=== PATIENT | female | born 1980 | race Caucasian/White ===

== ENCOUNTER 2017-12-30 08:15 | Emergency (ER) | payer BC ==
[2017-12-30 08:43] VITALS: BP 142/97
--- NOTE | 2017-12-30 09:54 | UC ---
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, step daughter has influenza---recent symptoms of cough with nausea and diarrhea - History of Current Complaint Hx Obtained From: Patient Hx Last Menstrual Period: now ?: No Onset/Duration: Gradual Onset, Lasting Weeks - 4, Still Present Timing: Constant Severity Initially: Moderate Severity Currently: Moderate Pain Intensity: 0 Pain Scale Used: 0-10 Numeric Character: Cough: Nonproductive Aggravating Factors: Nothing Alleviating Factors: Nothing Associated Signs And Symptoms: Positive: Fever, Nasal Congestion <Aletha Godinez - Last Filed: 12/30/17 10:26> <Asuncion Goodwin - Last Filed: 12/30/17 14:21> - History of Current Complaint Chief Complaint: UCRespiratory Stated Complaint: CONGESTED,VOMITING,COUGH Time Seen by Provider: 12/30/17 09:46 - Allergies/Home Medications Allergies/Adverse Reactions: Allergies Allergy/AdvReac Type Severity Reaction Status Date / Time No Known Allergies Allergy Verified 12/30/17 08:37 PMH/Surg Hx/FS Hx/Imm Hx Previously Healthy: Yes - Surgical History Surgical History: None - Family History Known Family History: Positive: None - Social History Occupation: Employed Full-time - day care Lives: With Family Alcohol Use: Daily - 4-5 glasses of wine daily Substance Use Type: None Smoking Status (MU): Never Smoked Tobacco <Aletha Godinez - Last Filed: 12/30/17 10:26> Review of Systems Constitutional: Fever, Chills, Fatigue Skin: Negative Eyes: Negative ENT: Nasal Discharge, Sinus Congestion Respiratory: Cough Cardiovascular: Negative Gastrointestinal: Vomiting, Diarrhea Genitourinary: Negative Motor: Negative Neurovascular: Negative Musculoskeletal: Negative Neurological: Headache Psychological: Negative Is Patient Immunocompromised?: No All Other Systems Reviewed And Are Negative: Yes <Aletha Godinez - Last Filed: 12/30/17 10:26> Physical Exam Triage Information Reviewed: Yes Appearance: No Pain Distress, Well-Nourished, Ill-Appearing - mild Vital Signs: Initial Vital Signs Temp 99.5 F 12/30/17 08:37 Pulse 114 12/30/17 08:37 Resp 18 12/30/17 08:37 BP 142/97 12/30/17 08:37 Pulse Ox 97 12/30/17 08:37 Vital Signs Reviewed: Yes Eye Exam: Normal Eyes: Positive: Conjunctiva Clear ENT Exam: Normal ENT: Positive: Normal ENT inspection, Hearing grossly normal, Pharynx normal, TMs normal, Uvula midline. Negative: Nasal congestion, Nasal drainage, Tonsillar swelling, Tonsillar exudate, Trismus, Muffled voice, Hoarse voice, Dental tenderness, Sinus tenderness Dental Exam: Normal Neck exam: Normal Neck: Positive: Supple, Nontender, No Lymphadenopathy Respiratory Exam: Normal Respiratory: Positive: Chest non-tender, Lungs clear, Normal breath sounds, No respiratory distress, No accessory muscle use Cardiovascular Exam: Normal Cardiovascular: Positive: No Murmur, Pulses Normal, Brisk Capillary Refill, Tachycardia Abdominal Exam: Normal Abdomen Description: Positive: Nontender, No Organomegaly, Soft. Negative: CVA Tenderness (R), CVA Tenderness (L) Bowel Sounds: Positive: Present Musculoskeletal Exam: Normal Musculoskeletal: Positive: Strength Intact, ROM Intact, No Edema Neurological Exam: Normal Neurological: Positive: Alert, Muscle Tone Normal Psychological Exam: Normal Psychological: Positive: Normal Response To Family, Age Appropriate Behavior Skin Exam: Normal Skin: Positive: Other - flushed <Aletha Godinez - Last Filed: 12/30/17 10:26> Vital Signs: Initial Vital Signs Temp 99.5 F 12/30/17 08:37 Pulse 114 12/30/17 08:37 Resp 18 12/30/17 08:37 BP 142/97 12/30/17 08:37 Pulse Ox 97 12/30/17 08:37 <Asuncion Goodwin - Last Filed: 12/30/17 14:21> Diagnostic Evaluation - Laboratory O2 Sat by Pulse Oximetry: 97 Diagnostic Studies Comment: Influenza B (+) <Aletha Godinez - Last Filed: 12/30/17 10:26> Respiratory Course/Dx - Course Course Of Treatment: tessalon, tamiflu, increase fluids, follow bp at [facility] drinking information - Differential Dx/Diagnosis Provider Diagnoses: Influenza B, Elevated blood pressure without dx of hypertension, at [facility] alcohol use <Aletha Godinez - Last Filed: 12/30/17 10:26> Discharge <Aletha Godinez - Last Filed: 12/30/17 10:26> <Asuncion Goodwin - Last Filed: 12/30/17 14:21> - Discharge Plan Condition: Stable Disposition: HOME Prescriptions: Benzonatate CAP* [Tessalon 100 MG CAP*] 100 - 200 mg PO TID PRN #40 cap PRN Reason: Cough Oseltamivir CAP* [Tamiflu CAP*] 75 mg PO BID #10 cap Patient Education Materials: Influenza (ED), At-Risk Alcohol Use (ED), Hypertension (ED) Forms: *Work Release Referrals: [facility] [Provider Group] Attestation Statement User Type: Provider - I was available for consult. This patient was seen by the [facility]. The patient was not presented to, seen by, or examined by me. Ljj <Asuncion Goodwin - Last Filed: 12/30/17 14:21>
== END 2017-12-30 10:32 | disposition home or self-care (01) ==
LOC: UCEAST 08:15
DX: J10.1 Influenza due to other identified influenza virus with other respiratory manifestations (principal); R03.0 Elevated blood-pressure reading, without diagnosis of hypertension; F10.99 Alcohol use, unspecified with unspecified alcohol-induced disorder
CPT/HCPCS: 87502; 99202; G0463

== ENCOUNTER 2018-04-27 17:08 | Emergency (ER) | payer BC ==
--- NOTE | 2018-04-27 17:14 | UC ---
Skin Complaint HPI - HPI Summary HPI Summary: 37 yo female presents with bug bite to left ribs sustained about 3-4 days ago. Area is getting increasingly red and itching. Denies fever, chills, drainage, or bleeding from the site. - History of Current Complaint Time Seen by Provider: 04/27/18 17:14 Stated Complaint: INSECT BITE Hx Obtained From: Patient Hx Last Menstrual Period: now Onset/Duration: Gradual Onset Current Severity: Mild Pain Intensity: 2 Pain Scale Used: 0-10 Numeric - Allergy/Home Medications Allergies/Adverse Reactions: Allergies Allergy/AdvReac Type Severity Reaction Status Date / Time No Known Allergies Allergy Verified 04/27/18 17:19 Review of Systems Constitutional: Negative Skin: Other - Redness left ribs Respiratory: Negative Cardiovascular: Negative Neurovascular: Negative Neurological: Negative Psychological: Negative All Other Systems Reviewed And Are Negative: Yes PMH/Surg Hx/FS Hx/Imm Hx - Additional Past Medical History Additional PMH: None Previously Healthy: Yes - Surgical History Surgical History: None - Family History Known Family History: Positive: None - Social History Occupation: Employed Full-time Lives: With Family Alcohol Use: Daily - 4-5 glasses of wine daily Substance Use Type: None Smoking Status (MU): Never Smoked Tobacco Physical Exam - Summary Physical Exam Summary: GENERAL: NAD. WDWN. No pain distress. SKIN: Left ribs: 5.0cm diameter of erythema and mild edema. Mild warmth. No streaking, bleeding, or drainage. NECK: Supple. Nontender. No lymphadenopathy. CHEST: No accessory muscle use. Breathing comfortably and in no distress. CV: RRR. Without m/r/g. NEURO: Alert. CN II-XII grossly intact. PSYCH: Age appropriate behavior. Triage Information Reviewed: Yes Vital Signs: Vital Signs: Temp Pulse Resp BP Pulse Ox 99.5 F 101 16 135/91 97 04/27/18 17:14 04/27/18 17:14 04/27/18 17:14 04/27/18 17:14 04/27/18 17:14 Course/Dx - Course Course Of Treatment: Cellulitis due to insect bite. - Diagnoses Provider Diagnoses: Cellulitis due to insect bite Discharge - Sign-Out/Discharge Documenting (check all that apply): Discharge/Admit/Transfer - Discharge Plan Condition: Stable Disposition: HOME Prescriptions: Cephalexin CAP* [Keflex CAP*] 500 mg PO BID #14 cap Patient Education Materials: Insect Bite or Sting (ED) Referrals: No Primary Care Phys,NOPCP [Primary Care Provider] - Additional Instructions: If you develop a fever, shortness of breath, chest pain, new or worsening symptoms - please call your PCP or go to the ED. Your blood pressure was high at todays visit. Please see your primary provider within 4 weeks for recheck and re-evaluation. - Billing Disposition and Condition Condition: STABLE Disposition: Home
[2018-04-27 17:19] VITALS: BP 135/91
== END 2018-04-27 17:30 | disposition home or self-care (01) ==
LOC: UCEAST 17:08
DX: S20.96XA Insect bite (nonvenomous) of unspecified parts of thorax, initial encounter (principal); L03.319 Cellulitis of trunk, unspecified; W57.XXXA Bitten or stung by nonvenomous insect and other nonvenomous arthropods, initial encounter; Y93.9 Activity, unspecified; Y92.9 Unspecified place or not applicable
CPT/HCPCS: 99212; G0463

== ENCOUNTER 2018-05-05 16:58 | Emergency (ER) | payer BC ==
[2018-05-05 17:17] VITALS: BP 126/88
--- NOTE | 2018-05-05 17:36 | UC ---
Skin Complaint HPI - HPI Summary HPI Summary: 37 yo female about 10 days s/p the development of a left lateral chest rash. When she first noticed the rash it was about the size of a silver dollar. It has expanded daily and has a bulls eye appearance. She photographed her rash with her phone and showed me a series of photos as it progressed. She denies any fever or chills/ headaches /joint pains. She was seen at the [facility] about a week ago and started on Keflex. States the Keflex is given her diarrhea and the rash has expanded despite her taking the medicine as directed. She denies any tick bite. - History of Current Complaint Chief Complaint: UCSkin Stated Complaint: POSS INSECT BITE Hx Obtained From: Patient Hx Last Menstrual Period: 04/28/18 Onset/Duration: Gradual Onset, Lasting Days Onset Severity: Mild Current Severity: Mild Pain Intensity: 2 Pain Scale Used: 0-10 Numeric Location: Other Character: Redness, Raised, Painful - sl Aggravating Factor(s): Nothing Alleviating Factor(s): Nothing Associated Signs & Symptoms: Positive: Rash - Allergy/Home Medications Allergies/Adverse Reactions: Allergies Allergy/AdvReac Type Severity Reaction Status Date / Time No Known Allergies Allergy Verified 05/05/18 17:08 Review of Systems Constitutional: Negative Skin: Rash Eyes: Negative ENT: Negative Respiratory: Negative Cardiovascular: Negative Gastrointestinal: Negative Genitourinary: Negative Motor: Negative Neurovascular: Negative Musculoskeletal: Negative Neurological: Negative Psychological: Negative Is Patient Immunocompromised?: No All Other Systems Reviewed And Are Negative: Yes PMH/Surg Hx/FS Hx/Imm Hx Previously Healthy: Yes - Surgical History Surgical History: Yes Surgery Procedure, Year, and Place: LEFT KNEE - Family History Known Family History: Positive: Hypertension - Social History Alcohol Use: Daily Alcohol Amount: few glasses of wine Substance Use Type: None Smoking Status (MU): Never Smoked Tobacco Physical Exam Triage Information Reviewed: Yes Appearance: Well-Appearing, No Pain Distress, Well-Nourished Vital Signs: Initial Vital Signs Temp 98.4 F 05/05/18 17:13 Pulse 101 05/05/18 17:13 Resp 16 05/05/18 17:13 BP 126/88 05/05/18 17:13 Pulse Ox 97 05/05/18 17:13 Vital Signs Reviewed: Yes Eyes: Positive: Conjunctiva Clear ENT: Negative: Nasal congestion, Nasal drainage, Muffled voice, Hoarse voice Neck: Positive: Supple, Nontender Respiratory: Positive: Lungs clear, Normal breath sounds, No respiratory distress, No accessory muscle use Cardiovascular: Positive: RRR, No Murmur Musculoskeletal: Positive: ROM Intact, No Edema Neurological: Positive: Alert Psychological Exam: Normal Skin Exam: Other - 10 x 20cm rash c/w erthyema migrans Course/Dx - Diagnoses Provider Diagnoses: LYME DISEASE. Erythema Migrans Discharge - Sign-Out/Discharge Documenting (check all that apply): Discharge/Admit/Transfer - Discharge Plan Condition: Stable Disposition: HOME Prescriptions: DOXYcycline CAP(*) [DOXYcycline 100MG CAP(*)] 100 mg PO BID #24 cap Patient Education Materials: Lyme Disease (ED) Referrals: Maite Mckoy MD [Primary Care Provider] - 2 Weeks Additional Instructions: recheck for new or worsening symptoms - Billing Disposition and Condition Condition: STABLE Disposition: Home
== END 2018-05-05 17:33 | disposition home or self-care (01) ==
LOC: UCCORT 16:58
DX: A69.20 Lyme disease, unspecified (principal); A26.0 Cutaneous erysipeloid
CPT/HCPCS: 99212; G0463

== ENCOUNTER 2021-05-10 19:49 | Inpatient (IN) ==
[2021-05-11] MEDS ORDERED: NS 0.9% 1000 ml BAG 1,000 ML IV ONE (01:20)
[2021-05-11] MEDS ORDERED: NS 0.9% 1000 ml BAG 2,000 ML IV ONE (01:25)
[2021-05-11] MEDS ORDERED: Ondansetron 4 mg VIAL 2 MG/ML 2 ml VIAL IV ONE (01:25)
[2021-05-11] MEDS ORDERED: Pantoprazole VIAL 40 MG VIAL IV ONE (01:29)
[2021-05-11 02:09] LABS: ALT 42 U/L (7-52); Albumin 3.1 g/dL (3.2-5.2); Albumin/Globulin Ratio 0.7 (1-3); Alkaline Phosphatase 173 U/L (35-149); Blood Urea Nitrogen 14 mg/dL (6-24); C Reactive Protein 96.51 mg/L (<8.01); CO2 Carbon Dioxide 30 mmol/L (22-32); Calcium 8.2 mg/dL (8.6-10.3); Chloride 97 mmol/L (101-111); EGFR African American 70.3 (>60); EGFR Non-African American 58.1 (>60); Globulin 4.4 g/dL (2-4); Glucose 121 mg/dL (70-100); Lipase 60 U/L (11.0-82.0); Sodium 134 mmol/L (135-145); Total Protein 7.5 g/dL (6.4-8.9)
[2021-05-11 02:16] LABS: ABS Lymphocytes 0.7 10^3/ul (1.0-4.8); ABS Neutrophils 8.7 10^3/ul (1.5-7.7); HCG Pregnancy 0.72 mIU/mL; Hematocrit 33 % (35-47); Hemoglobin 11.5 g/dL (12.0-16.0); Lymphocyte % 6.7 %; Mean Corpuscular HGB Conc 34 g/dL (31-36); Mean Corpuscular Hemoglobin 34 pg (27-31); Mean Corpuscular Volume 99 fL (80-97); Nucleated Red Blood Cells % 0.1; Red Blood Count 3.37 10^6 /uL (3.70-4.87); Red Cell Distribution Width 20 % (10-15); White Blood Count 10.5 10^3/uL (3.5-10.8)
[2021-05-11 02:40] LABS: Platelet Count 20 10^3/uL (150-450)
[2021-05-11 02:45] LABS: Alcohol, S < 10 mg/dL (<10)
[2021-05-11 02:51] LABS: Magnesium 1.4 mg/dL (1.9-2.7)
[2021-05-11 02:52] LABS: Anion Gap 7 mmol/L (2-11); Potassium 3.3 mmol/L (3.5-5.0)
[2021-05-11] MEDS ORDERED: Magnesium Sulfate 2 gm BAG 2 GM/50 ML BAG IVPB ONE (02:53)
[2021-05-11 02:54] LABS: AST 137 U/L (13-39)
[2021-05-11] MEDS ORDERED: Lorazepam PYXIS KEY PRN (03:01)
[2021-05-11] MEDS ORDERED: LORazepam 2 mg VIAL 1 ml IV PUSH ONE (03:01)
[2021-05-11 03:39] LABS: INR 2.68 (0.86-1.15)
[2021-05-11] MEDS ORDERED: Ondansetron 4 mg VIAL 2 MG/ML 2 ml VIAL IV PRN (04:22)
[2021-05-11] MEDS ORDERED: NS 0.9% 1000 ml BAG 1,000 ML IV SCH (04:30)
[2021-05-11] MEDS ORDERED: Thiamine 100 MG/ML 2 ml VIAL (200 mg) IM ONE (04:46)
[2021-05-11] MEDS ORDERED: LORazepam 2 mg VIAL 1 ml IV PUSH SCH (05:00)
[2021-05-11] MEDS ORDERED: Potassium Chlor 20 meq TAB.ER PO ONE (05:21)
[2021-05-11 05:35] LABS: Hepatitis B Surface Antigen Nonreactive (Nonreactive)
[2021-05-11 05:40] LABS: Hepatitis A Ab IgM Negative (Negative)
[2021-05-11 05:41] LABS: Hepatitis B Core IgM Nonreactive (Nonreactive)
[2021-05-11 05:53] LABS: Hepatitis C Antibody Negative (Negative)
[2021-05-11 09:00] LABS: Total Bilirubin 12.6 mg/dL (0.2-1.0)
[2021-05-11] MEDS ORDERED: PrednisoLONE 3 MG/ML ORAL.SOLU 15 MG/5 ML ORAL.SOLN PO SCH (09:00)
[2021-05-11] MEDS ORDERED: Multivitamins/Minerals TAB PO SCH (09:00)
[2021-05-12 06:10] VITALS: BP 146/80
[2021-05-12 06:22] LABS: INR 2.66 (0.86-1.15)
[2021-05-12 06:37] LABS: Hematocrit 28 % (35-47); Hemoglobin 9.6 g/dL (12.0-16.0); Mean Corpuscular HGB Conc 35 g/dL (31-36); Mean Corpuscular Hemoglobin 35 pg (27-31); Mean Corpuscular Volume 101 fL (80-97); Mean Platelet Volume 8.1 fL (7.4-10.4); Platelet Count 18 10^3/uL (150-450); Red Blood Count 2.73 10^6 /uL (3.70-4.87); Red Cell Distribution Width 19 % (10-15)
[2021-05-12 06:40] LABS: Albumin 2.7 g/dL (3.2-5.2); Albumin/Globulin Ratio 0.7 (1-3); C Reactive Protein 74.89 mg/L (<8.01); Calcium 7.9 mg/dL (8.6-10.3); Direct Bilirubin 5.2 mg/dL (0.03-0.18); EGFR Non-African American 65.3 (>60); Globulin 3.7 g/dL (2-4); Indirect Bilirubin 5.6 mg/dL (0.3-1.0); Magnesium 1.7 mg/dL (1.9-2.7); Potassium 3.3 mmol/L (3.5-5.0); Total Bilirubin 10.8 mg/dL (0.2-1.0); Total Protein 6.4 g/dL (6.4-8.9)
[2021-05-12 07:10] LABS: ABS Eosinophils 0.1 10^3/ul (0-0.6); ABS Lymphocytes 1.2 10^3/ul (1.0-4.8); ABS Monocytes 1.1 10^3/ul (0-0.8); ABS Neutrophils 7.6 10^3/ul (1.5-7.7); Lymphocyte % 11.9 %
[2021-05-12 07:11] LABS: Eosinophil % 0.7 %
[2021-05-12] MEDS ORDERED: Potassium Chlor 20 meq TAB.ER PO ONE (07:27)
[2021-05-12] MEDS ORDERED: Magnesium Sulfate IV 1GM/100ML 1 GM/100 ML BAG IV ONE (07:57)
== END 2021-05-12 08:25 | disposition left against medical advice (07) | DRG 279 ==
LOC: ED 19:49 → MEDTELE 05-11 04:18
PROVIDERS: ADMIT Hospitalist; ATTEND Student in an Organized Health Care Education/Training Program

== ENCOUNTER 2021-09-25 15:09 | Inpatient (IN) ==
[2021-09-25] MEDS ORDERED: Lactated Ringers 1000 ml BAG 1,000 ML IV ONE (15:37)
[2021-09-25] MEDS ORDERED: Ondansetron 4 mg VIAL 2 MG/ML 2 ml VIAL IV ONE (15:37)
[2021-09-25] MEDS ORDERED: Pantoprazole VIAL 40 MG VIAL IV ONE (15:39)
[2021-09-25 16:38] LABS: Activated Partial Thrombo Time 40.7 seconds (26.0-38.0)
[2021-09-25 16:39] LABS: INR 3.87 (0.86-1.15)
[2021-09-25 16:42] LABS: Albumin/Globulin Ratio 0.6 (1-3); C Reactive Protein 14.51 mg/L (<8.01); Globulin 3.4 g/dL (2-4); Potassium 4.3 mmol/L (3.5-5.0); Total Protein 5.4 g/dL (6.4-8.9)
[2021-09-25 17:01] LABS: Total Bilirubin 12.7 mg/dL (0.2-1.0)
[2021-09-25 17:19] LABS: ABS Lymphocytes 0.7 10^3/ul (1.0-4.8); ABS Monocytes 0.9 10^3/ul (0-0.8); ABS Neutrophils 5.5 10^3/ul (1.5-7.7); Hematocrit 26 % (35-47); Hemoglobin 9.1 g/dL (12.0-16.0); Hypochromasia 1+; Lymphocyte % 9.6 %; Macrocytosis 1+; Mean Corpuscular HGB Conc 35 g/dL (31-36); Mean Corpuscular Hemoglobin 38 pg (27-31); Mean Corpuscular Volume 109 fL (80-97); Mean Platelet Volume 8.8 fL (7.4-10.4); Microcytosis 1+; Platelet Count 52 10^3/uL (150-450); Red Blood Count 2.38 10^6 /uL (3.70-4.87); Red Cell Distribution Width 16 % (10-15); White Blood Count 7.1 10^3/uL (3.5-10.8)
[2021-09-25 17:43] LABS: Direct Bilirubin 5.7 mg/dL (0.03-0.18)
[2021-09-25] MEDS ORDERED: NS 0.9% 1000 ml BAG 1,000 ML IV ONE ×2 (18:42→20:38)
[2021-09-26] MEDS ORDERED: Phytonadione Oral Solution 5 MG/25 ML UDC PO ONE ×2 (00:13→16:37)
[2021-09-26] MEDS ORDERED: Octreotide Acetate 50 MCG/ML ML IV SLOW PU ONE (00:13)
[2021-09-26] MEDS ORDERED: Ondansetron 4 mg VIAL 2 MG/ML 2 ml VIAL IV PRN (00:25)
[2021-09-26] MEDS ORDERED: Al Hydrox/Mg Hydrox/Simet LIQ 30 ML UDC PO PRN (00:25)
[2021-09-26] MEDS ORDERED: Octreotide Acetate 50 MCG in NS 0.9% IV ONE (00:30)
[2021-09-26] MEDS ORDERED: NS 0.9% 50 ML 50 ML ONE (00:33)
[2021-09-26] MEDS ORDERED: NS 0.9% 1000 ml BAG 1,000 ML IV SCH (00:45)
[2021-09-26] MEDS: Pantoprazole 80 mg in NS BAG 80 MG/250 ML BAG IV SCH ×3 (01:27→18:13)
[2021-09-26] MEDS ORDERED: Octreotide Acetate 500 MCG in NS 0.9% 100 ml BAG 100 ML IV SCH (02:30)
[2021-09-26 03:31] LABS: Urine Appearance Cloudy; Urine Bacteria 1+ (Absent); Urine Bilirubin 2+ (Negative); Urine Blood 1+ (Negative); Urine Color Amber; Urine Glucose 1+(50 mg/dL) (Negative); Urine Granular Casts Present (Absent); Urine Ketones Trace (Negative); Urine Nitrite Negative (Negative); Urine Protein 1+(30 mg/dL) (Negative); Urine Red Blood Cell Trace(0-2/hpf) (Absent); Urine Specific Gravity 1.023 (1.002-1.030); Urine Squamous Epithelial Cell Present (Absent); Urine Urobilinogen Positive (Negative); Urine White Blood Cell 2+(11-20/hpf) (Absent)
[2021-09-26 03:46] LABS: Hematocrit 21 % (35-47); Mean Corpuscular HGB Conc 33 g/dL (31-36); Mean Corpuscular Hemoglobin 37 pg (27-31); Mean Corpuscular Volume 112 fL (80-97); Red Blood Count 1.89 10^6 /uL (3.70-4.87); Red Cell Distribution Width 17 % (10-15); White Blood Count 5.1 10^3/uL (3.5-10.8)
[2021-09-26 03:51] LABS: Rapid COVID-19 Molecular Undetected (Undetected)
[2021-09-26 03:53] LABS: ALT 23 U/L (7-52); Albumin 1.7 g/dL (3.2-5.2); Albumin/Globulin Ratio 0.6 (1-3); Alkaline Phosphatase 101 U/L (35-149); Blood Urea Nitrogen 19 mg/dL (6-24); CO2 Carbon Dioxide 25 mmol/L (22-32); Calcium 7.4 mg/dL (8.6-10.3); Chloride 105 mmol/L (101-111); Globulin 2.9 g/dL (2-4); Glucose 151 mg/dL (70-100); Sodium 137 mmol/L (135-145); Total Protein 4.6 g/dL (6.4-8.9)
[2021-09-26 03:55] LABS: INR 4.06 (0.86-1.15)
[2021-09-26 03:57] LABS: Anion Gap 7 mmol/L (2-11)
[2021-09-26] MEDS ORDERED: cefTRIAXone 1 gm/50 mL NS BAG 1 GM/50 ML BAG IVPB SCH (04:00)
[2021-09-26 04:53] LABS: Potassium Redraw 4.5 mmol/L (3.5-5.0)
[2021-09-26 07:14] LABS: ABS Lymphocytes 0.7 10^3/ul (1.0-4.8); ABS Monocytes 0.5 10^3/ul (0-0.8); Lymphocyte % 12.9 %; Mean Platelet Volume 10.9 fL (7.4-10.4); Nucleated Red Blood Cells % 0.1; Platelet Count 56 10^3/uL (150-450)
[2021-09-26 09:16] LABS: Phosphorus 3.9 mg/dL (2.5-5.0)
[2021-09-26 09:17] LABS: Magnesium 1.2 mg/dL (1.9-2.7)
[2021-09-26] MEDS ORDERED: Magnesium Sulf 4 GM/100 ML IV 4,000 MG/100 ML BAG IVPB ONE (10:30)
[2021-09-26] MEDS ORDERED: Pantoprazole VIAL 40 MG VIAL IV ONE (10:48)
[2021-09-26] MEDS: Octreotide Acetate 500 MCG in NS 0.9% 100 ml BAG 100 ML IV SCH ×3 (11:50→21:41)
[2021-09-26] MEDS ORDERED: Naloxone 0.4 mg VIAL 0.4 mg/ml 1 ml VIAL IV PRN (15:18)
[2021-09-26] MEDS ORDERED: Prochlorperazine 5 mg/ml 2 ml VIAL (10 mg) IV PRN (15:18)
[2021-09-26] MEDS ORDERED: Midazolam 2 mg/2 ml VIAL 1 mg/ml 2 ml VIAL (2 mg) ONE (15:24)
[2021-09-26] MEDS ORDERED: Propofol 10 MG/ML 20 ML BTL ONE (15:24)
[2021-09-26] MEDS ORDERED: fentaNYL 100 mcg/2 ml 50 MCG/ML VIAL ONE (15:24)
[2021-09-26] MEDS ORDERED: Phenylephrine 40 mcg/mL 10mL (400mcg) SYRINGE ONE (15:24)
[2021-09-26] MEDS ORDERED: Succinylcholine 200 mg VIAL 20 mg/ml 10 ml VIAL (200 mg) ONE (15:27)
[2021-09-26 15:29] LABS: Hematocrit 26 % (35-47); Hemoglobin 8.8 g/dL (12.0-16.0); Mean Corpuscular HGB Conc 34 g/dL (31-36); Mean Corpuscular Hemoglobin 37 pg (27-31); Mean Corpuscular Volume 107 fL (80-97); Red Cell Distribution Width 19 % (10-15)
[2021-09-26 15:46] LABS: Activated Partial Thrombo Time 43.3 seconds (26.0-38.0); INR 2.81 (0.86-1.15)
[2021-09-26 15:52] LABS: Mean Platelet Volume 8.8 fL (7.4-10.4); Platelet Count 39 10^3/uL (150-450)
[2021-09-26] MEDS ORDERED: EPHEDrine (Pressors) 50 MG/ML VIAL ONE (15:55)
[2021-09-26] MEDS ORDERED: Ondansetron 4 mg VIAL 2 MG/ML 2 ml VIAL ONE (16:09)
[2021-09-26 16:12] LABS: Albumin 1.9 g/dL (3.2-5.2); Albumin/Globulin Ratio 0.6 (1-3); Calcium 7.5 mg/dL (8.6-10.3); Globulin 3.1 g/dL (2-4); Phosphorus 3.6 mg/dL (2.5-5.0); Potassium 4.2 mmol/L (3.5-5.0)
[2021-09-26 16:13] LABS: Magnesium 2.4 mg/dL (1.9-2.7)
[2021-09-26 16:19] LABS: Total Bilirubin 12.6 mg/dL (0.2-1.0)
[2021-09-26] MEDS ORDERED: Prothrombin Complex Conc. DOSE = Units Factor IX (nine) IV SLOW PU ONE (16:36)
[2021-09-26] MEDS ORDERED: Pantoprazole 80 mg in NS BAG 80 MG/250 ML BAG IV SCH (18:00)
[2021-09-26] MEDS ORDERED: Lactated Ringers 1000 ml BAG 1,000 ML IV SCH (19:00)
[2021-09-26 21:28] LABS: Folate 7.56 ng/mL (5.90-24.80)
[2021-09-26 21:29] LABS: Vitamin B12 > 1450 pg/mL (180-914)
[2021-09-26] MEDS ORDERED: Lactated Ringers 500 ml BAG 500 ML IV ONE (21:34)
[2021-09-27] MEDS ORDERED: Vancomycin 1,000 MG in NS 0.9% 250 ml 250 ML IVPB ONE (01:30)
[2021-09-27] MEDS ORDERED: Vancomycin per Pharmacy 1 EA NOTE FOLLOW UP SCH (02:00)
[2021-09-27] MEDS: Octreotide Acetate 500 MCG in NS 0.9% 100 ml BAG 100 ML IV SCH ×4 (03:35→23:25)
[2021-09-27] MEDS: Pantoprazole 80 mg in NS BAG 80 MG/250 ML BAG IV SCH ×3 (04:06→23:26)
[2021-09-27 06:13] LABS: Hematocrit 22 % (35-47); Hemoglobin 7.5 g/dL (12.0-16.0); Mean Corpuscular HGB Conc 34 g/dL (31-36); Mean Corpuscular Hemoglobin 37 pg (27-31); Mean Corpuscular Volume 108 fL (80-97); Mean Platelet Volume 7.9 fL (7.4-10.4); Platelet Count 32 10^3/uL (150-450); Red Blood Count 2.06 10^6 /uL (3.70-4.87); Red Cell Distribution Width 19 % (10-15); White Blood Count 6.5 10^3/uL (3.5-10.8)
[2021-09-27 06:18] LABS: INR 2.76 (0.86-1.15)
[2021-09-27 06:25] LABS: Albumin 1.7 g/dL (3.2-5.2); Anion Gap 5 mmol/L (2-11); CO2 Carbon Dioxide 22 mmol/L (22-32); Chloride 104 mmol/L (101-111); Potassium 3.8 mmol/L (3.5-5.0); Sodium 131 mmol/L (135-145)
[2021-09-27 06:26] LABS: Magnesium 2.2 mg/dL (1.9-2.7)
[2021-09-27 06:31] LABS: ALT 19 U/L (7-52); AST 85 U/L (13-39); Albumin/Globulin Ratio 0.6 (1-3); Alkaline Phosphatase 81 U/L (35-149); Blood Urea Nitrogen 30 mg/dL (6-24); Glucose 118 mg/dL (70-100); Phosphorus 2.7 mg/dL (2.5-5.0); Total Protein 4.7 g/dL (6.4-8.9)
[2021-09-27 06:34] LABS: Indirect Bilirubin 6.3 mg/dL (0.3-1.0)
[2021-09-27] MEDS: cefTRIAXone 2 GM ADDV.VIAL 2 GM in NS 0.9% 100 ml BAG 100 ML IV SCH (08:04)
[2021-09-27] MEDS ORDERED: Pneumococcal Vac 23-Polyvalent IM ONE (09:00)
[2021-09-27 10:22] LABS: HCG Pregnancy 1.11 mIU/mL
[2021-09-27] MEDS ORDERED: Phytonadione Oral Solution 5 MG/25 ML UDC PO ONE (12:23)
[2021-09-27 14:47] LABS: Hematocrit 25 % (35-47); Hemoglobin 8.4 g/dL (12.0-16.0); Mean Corpuscular HGB Conc 34 g/dL (31-36); Mean Corpuscular Hemoglobin 36 pg (27-31); Mean Corpuscular Volume 107 fL (80-97); Mean Platelet Volume 8.4 fL (7.4-10.4); Platelet Count 48 10^3/uL (150-450); Red Blood Count 2.31 10^6 /uL (3.70-4.87); Red Cell Distribution Width 19 % (10-15); White Blood Count 8.7 10^3/uL (3.5-10.8)
[2021-09-27 14:50] LABS: Platelet Count, Citrated 39 10^3/ul (150-450)
[2021-09-27 15:02] LABS: Albumin/Globulin Ratio 0.7 (1-3); Direct Bilirubin 7.6 mg/dL (0.03-0.18); Potassium 3.7 mmol/L (3.5-5.0)
[2021-09-27 15:05] LABS: Indirect Bilirubin 6.2 mg/dL (0.3-1.0); Magnesium 2.2 mg/dL (1.9-2.7); Total Bilirubin 13.8 mg/dL (0.2-1.0)
[2021-09-27] MEDS ORDERED: Potassium Chlor 20 meq TAB.ER PO ONE (15:30)
[2021-09-27 15:41] LABS: Body Fluid Source Peritonial Fluid
[2021-09-27 15:56] LABS: Body Fluid Appearance Cloudy; Body Fluid Color Yellow
[2021-09-27] MEDS: Vancomycin 1000 MG in NS 0.9% 250 ML IVPB SCH (16:22)
[2021-09-27] MEDS ORDERED: Furosemide 20 mg/2 ml IV VIAL IV ONE (18:09)
[2021-09-27 18:16] LABS: Body Fluid Mono 8 %; Body Fluid Other Cells 1; Body Fluid Total Cells Counted 200
[2021-09-27 18:20] LABS: Body Fluid WBC 4172 /mcL
[2021-09-27] MEDS: Multivitamins/Minerals TAB PO SCH (20:17)
[2021-09-28] MEDS: Vancomycin 1000 MG in NS 0.9% 250 ML IVPB SCH ×2 (02:34→16:47)
[2021-09-28 02:57] LABS: Hepatitis B Surface Antigen Nonreactive (Nonreactive)
[2021-09-28 03:02] LABS: Hepatitis A Ab IgM Negative (Negative)
[2021-09-28 03:03] LABS: Hepatitis B Core IgM Nonreactive (Nonreactive)
[2021-09-28 03:15] LABS: Hepatitis C Antibody Negative (Negative)
[2021-09-28] MEDS: Pantoprazole 80 mg in NS BAG 80 MG/250 ML BAG IV SCH ×2 (04:10→10:39)
[2021-09-28 06:57] LABS: Hematocrit 23 % (35-47); Hemoglobin 7.9 g/dL (12.0-16.0); Mean Corpuscular HGB Conc 34 g/dL (31-36); Mean Corpuscular Hemoglobin 37 pg (27-31); Mean Corpuscular Volume 107 fL (80-97); Mean Platelet Volume 8.6 fL (7.4-10.4); Platelet Count 46 10^3/uL (150-450); Red Blood Count 2.14 10^6 /uL (3.70-4.87); Red Cell Distribution Width 18 % (10-15)
[2021-09-28 07:03] LABS: INR 2.75 (0.86-1.15); Phosphorus 1.4 mg/dL (2.5-5.0); Potassium 3.7 mmol/L (3.5-5.0)
[2021-09-28 07:08] LABS: Magnesium 1.9 mg/dL (1.9-2.7)
[2021-09-28] MEDS ORDERED: Potassium Phosphate IV 10 MMOLE in NS 0.9% 250 ml 250 ML IVPB ONE (07:29)
[2021-09-28] MEDS: cefTRIAXone 2 GM ADDV.VIAL 2 GM in NS 0.9% 100 ml BAG 100 ML IV SCH (08:11)
[2021-09-28] MEDS ORDERED: Magnesium Sulfate 2 gm BAG 2 GM/50 ML BAG IVPB ONE ×2 (08:15→21:22)
[2021-09-28] MEDS: Multivitamins/Minerals TAB PO SCH (08:23)
[2021-09-28] MEDS ORDERED: Potassium Phosphate IV 20 MMOLE in NS 0.9% 250 ml 250 ML IVPB ONE (09:00)
[2021-09-28] MEDS: Octreotide Acetate 500 MCG in NS 0.9% 100 ml BAG 100 ML IV SCH (09:24)
[2021-09-28] MEDS ORDERED: Furosemide 20 mg/2 ml IV VIAL IV SLOW PU ONE ×2 (09:35→22:58)
[2021-09-28] MEDS ORDERED: Pantoprazole VIAL 40 MG VIAL IV ONE (10:15)
[2021-09-28 12:09] LABS: Lactate Dehydrogenase, BF 181 U/L
[2021-09-28 13:17] LABS: Albumin, BF 0.4 g/dL; Fluid Type, Albumin PERITONEAL
[2021-09-28 13:57] LABS: Glucose, BF 135 mg/dL
[2021-09-28 14:02] LABS: Fluid Type, Protein, Total PERITONEAL; Total Protein, BF 0.7 g/dL
[2021-09-28] MEDS ORDERED: Vancomycin Trough Check NOTE FOLLOW UP ONE (14:30)
[2021-09-28 15:48] LABS: Vancomycin Trough 9.9 mcg/mL
[2021-09-28] MEDS: Lactulose 30 ml UDC PO SCH ×2 (17:20→20:31)
[2021-09-28] MEDS: Meropenem 1 GM PREMIX(*) 1 GM/50 ML BAG IV SCH (17:44)
[2021-09-28] MEDS: Albumin Human 25% 25 GM/100 ML BTL IV SCH ×4 (18:37→22:50)
[2021-09-28 19:49] LABS: Phosphorus 1.8 mg/dL (2.5-5.0); Potassium 3.8 mmol/L (3.5-5.0)
[2021-09-28 19:50] LABS: Magnesium 2.1 mg/dL (1.9-2.7)
[2021-09-28] MEDS ORDERED: Albuterol/Ipratropium NEB.SOL (2.5/0.5 MG) 3 ML NEB.SOLN INH ONE (22:37)
[2021-09-28] MEDS ORDERED: Albuterol 2.5mg/3 ml (0.083%) NEB.SOLN INH PRN (22:37)
[2021-09-29] MEDS: Meropenem 1 GM PREMIX(*) 1 GM/50 ML BAG IV SCH ×3 (01:09→17:24)
[2021-09-29 05:29] LABS: PCO2 Arterial 39 mmHg (35-45); PO2 Arterial 62 mmHg (80-100)
[2021-09-29] MEDS ORDERED: Furosemide 40 mg/4 ml IV VIAL IV SLOW PU ONE (05:39)
[2021-09-29] MEDS ORDERED: EPINEPHrine SYR 0.1MG/ML 10 ml SYRINGE ONE (06:37)
[2021-09-29] MEDS ORDERED: Succinylcholine 200 mg VIAL 20 mg/ml 10 ml VIAL (200 mg) ONE (06:37)
[2021-09-29] MEDS ORDERED: Etomidate 40 mg/20 ml (2 MG/ML) 20 ml VIAL (40 mg) ONE (06:37)
[2021-09-29 06:51] LABS: Hematocrit 22 % (35-47); Hemoglobin 7.5 g/dL (12.0-16.0); INR 3.14 (0.86-1.15); Mean Corpuscular HGB Conc 34 g/dL (31-36); Mean Corpuscular Hemoglobin 37 pg (27-31); Mean Corpuscular Volume 109 fL (80-97); Platelet Count 52 10^3/uL (150-450); Red Cell Distribution Width 19 % (10-15); White Blood Count 10.6 10^3/uL (3.5-10.8)
[2021-09-29 06:52] LABS: Albumin 3.1 g/dL (3.2-5.2); Albumin/Globulin Ratio 1.3 (1-3); Calcium 7.3 mg/dL (8.6-10.3); Direct Bilirubin 7.4 mg/dL (0.03-0.18); Globulin 2.4 g/dL (2-4); Phosphorus 2.8 mg/dL (2.5-5.0); Potassium 3.5 mmol/L (3.5-5.0); Total Protein 5.5 g/dL (6.4-8.9)
[2021-09-29 07:08] LABS: Indirect Bilirubin 8.1 mg/dL (0.3-1.0); Magnesium 2.5 mg/dL (1.9-2.7); Total Bilirubin 15.5 mg/dL (0.2-1.0)
[2021-09-29 07:27] LABS: ABS Lymphocytes 0.8 10^3/ul (1.0-4.8); ABS Monocytes 2.7 10^3/ul (0-0.8); ABS Neutrophils 7.1 10^3/ul (1.5-7.7); ABS Nucleated RBC 0.1 10^3/ul; Eosinophil % 0.2 %; Lymphocyte % 7.3 %; Nucleated Red Blood Cells % 0.9
[2021-09-29 07:30] LABS: Macrocytosis 1+; Polychromasia 2+; Toxic Granulation 1+
[2021-09-29] MEDS: Propofol 10 mg/ml 100 ML BTL 100 ML IV SCH ×3 (07:45→20:21)
[2021-09-29 09:06] LABS: ABS Lymphocytes 0.4 10^3/ul (1.0-4.8); ABS Monocytes 2.2 10^3/ul (0-0.8); ABS Neutrophils 7.4 10^3/ul (1.5-7.7); ABS Nucleated RBC 0.1 10^3/ul; Eosinophil % 0.3 %; Hematocrit 20 % (35-47); Hemoglobin 6.9 g/dL (12.0-16.0); Lymphocyte % 4.3 %; Mean Corpuscular HGB Conc 34 g/dL (31-36); Mean Corpuscular Hemoglobin 37 pg (27-31); Mean Corpuscular Volume 108 fL (80-97); Mean Platelet Volume 9.1 fL (7.4-10.4); Nucleated Red Blood Cells % 0.8; Platelet Count 44 10^3/uL (150-450); Red Blood Count 1.85 10^6 /uL (3.70-4.87); Red Cell Distribution Width 18 % (10-15); White Blood Count 10.1 10^3/uL (3.5-10.8)
[2021-09-29 09:20] LABS: Albumin 2.8 g/dL (3.2-5.2); Albumin/Globulin Ratio 1.4 (1-3); Calcium 7.1 mg/dL (8.6-10.3); Phosphorus 3.5 mg/dL (2.5-5.0); Potassium 3.1 mmol/L (3.5-5.0); Total Protein 4.8 g/dL (6.4-8.9)
[2021-09-29] MEDS: Chlorhexidine MOUTHWASH 0.12% 15 ML UDC TOPICAL SCH ×4 (09:22→19:39)
[2021-09-29] MEDS: Lactulose 30 ml UDC PO SCH ×4 (09:22→21:12)
[2021-09-29] MEDS: Multivitamins/Minerals TAB PO SCH (09:23)
[2021-09-29] MEDS: Pantoprazole VIAL 40 MG VIAL IV SCH (09:23)
[2021-09-29 09:45] LABS: Total Bilirubin 13.9 mg/dL (0.2-1.0)
[2021-09-29 10:12] LABS: Urine Appearance Cloudy; Urine Bilirubin 1+ (Negative); Urine Blood 3+ (Negative); Urine Color Amber; Urine Glucose 1+(50 mg/dL) (Negative); Urine Ketones Negative (Negative); Urine Nitrite Negative (Negative); Urine Protein 3+(>=500 mg/dL) (Negative); Urine Specific Gravity 1.016 (1.002-1.030); Urine Urobilinogen Negative (Negative)
[2021-09-29] MEDS ORDERED: Potassium Chloride LIQUID 20 MEQ/15 ML LIQUID PO ONE (10:12)
[2021-09-29] MEDS ORDERED: KCL 20 MEQ/100 ML IVPREMIX 20 MEQ/100 ML BAG IV ONE (10:13)
[2021-09-29] MEDS ORDERED: Albumin Human 25% 100 GM/400 ML BTL IV ONE (10:18)
[2021-09-29 10:23] LABS: Magnesium 2.4 mg/dL (1.9-2.7)
[2021-09-29 10:54] LABS: Urine Bacteria 1+ (Absent); Urine Red Blood Cell Trace(0-2/hpf) (Absent); Urine White Blood Cell Trace(0-5/hpf) (Absent)
[2021-09-29] MEDS ORDERED: Vancomycin 1,250 MG in NS 0.9% 250 ml 250 ML IVPB ONE (11:00)
[2021-09-29] MEDS ORDERED: Vancomycin per Pharmacy 1 EA NOTE FOLLOW UP SCH (11:00)
[2021-09-29] MEDS: Albumin Human 25% 25 GM/100 ML BTL IV SCH (11:52)
[2021-09-30] MEDS: Chlorhexidine MOUTHWASH 0.12% 15 ML UDC TOPICAL SCH ×6 (00:02→20:07)
[2021-09-30] MEDS: Propofol 10 mg/ml 100 ML BTL 100 ML IV SCH ×2 (00:09→04:25)
[2021-09-30] MEDS: Meropenem 1 GM PREMIX(*) 1 GM/50 ML BAG IV SCH ×3 (01:03→17:35)
[2021-09-30 05:18] LABS: Albumin 2.4 g/dL (3.2-5.2); Albumin/Globulin Ratio 1.3 (1-3); Globulin 1.9 g/dL (2-4); Total Bilirubin 11.7 mg/dL (0.2-1.0); Total Protein 4.3 g/dL (6.4-8.9)
[2021-09-30 05:21] LABS: Magnesium 2.4 mg/dL (1.9-2.7); Phosphorus 1.9 mg/dL (2.5-5.0)
[2021-09-30 05:36] LABS: Hematocrit 19 % (35-47); Hemoglobin 7.2 g/dL (12.0-16.0); Mean Corpuscular HGB Conc 37 g/dL (31-36); Mean Corpuscular Hemoglobin 40 pg (27-31); Mean Corpuscular Volume 106 fL (80-97); Mean Platelet Volume 9.3 fL (7.4-10.4); Platelet Count 37 10^3/uL (150-450); Red Cell Distribution Width 18 % (10-15); White Blood Count 6.4 10^3/uL (3.5-10.8)
[2021-09-30 06:00] LABS: INR 3.18 (0.86-1.15)
[2021-09-30] MEDS ORDERED: Potassium Chloride LIQUID 20 MEQ/15 ML LIQUID PO ONE (06:32)
[2021-09-30] MEDS ORDERED: Potassium Phosphate IV 15 MMOLE in NS 0.9% 250 ml 250 ML IVPB ONE (07:00)
[2021-09-30] MEDS ORDERED: KCL 20 MEQ/100 ML IVPREMIX 20 MEQ/100 ML BAG IV ONE (07:19)
[2021-09-30] MEDS: Multivitamins/Minerals TAB PO SCH (07:55)
[2021-09-30] MEDS: Albumin Human 25% 25 GM/100 ML BTL IV SCH ×3 (07:56→13:00)
[2021-09-30] MEDS: Pantoprazole VIAL 40 MG VIAL IV SCH (08:43)
[2021-09-30] MEDS: Lactulose 30 ml UDC PO SCH ×4 (08:43→21:52)
[2021-09-30] MEDS ORDERED: Propofol 10 mg/ml 100 ML BTL 100 ML IV SCH (09:22)
[2021-09-30 11:52] LABS: Ceruloplasmin 17.7 mg/dL
[2021-09-30] MEDS ORDERED: Acetaminophen IV 1 GM/100ML 100 ML IV ONE (14:38)
[2021-09-30] MEDS: Artificial Tear OPHTH.OINT 3.5 GM BOTH EYES SCH ×3 (14:57→21:52)
[2021-09-30] MEDS ORDERED: fentaNYL 100 mcg/2 ml 50 MCG/ML VIAL IV SLOW PU PRN ×2 (15:00→18:12)
[2021-09-30] MEDS ORDERED: fentaNYL 100 mcg/2 ml 50 MCG/ML VIAL ONE (15:03)
[2021-09-30 17:33] LABS: Mitochondria M2 Antibody <0.1 U
[2021-09-30] MEDS ORDERED: Lorazepam PYXIS KEY PRN (19:39)
[2021-09-30] MEDS: LORazepam 2 mg VIAL 1 ml IV PUSH PRN ×2 (20:07→23:02)
[2021-09-30] MEDS: fentaNYL 100 mcg/2 ml 50 MCG/ML VIAL IV SLOW PU PRN (23:02)
[2021-10-01] MEDS: Chlorhexidine MOUTHWASH 0.12% 15 ML UDC TOPICAL SCH ×6 (00:16→20:49)
[2021-10-01] MEDS: Artificial Tear OPHTH.OINT 3.5 GM BOTH EYES SCH ×6 (01:52→20:49)
[2021-10-01] MEDS: Meropenem 1 GM PREMIX(*) 1 GM/50 ML BAG IV SCH ×2 (01:52→08:02)
[2021-10-01] MEDS: LORazepam 2 mg VIAL 1 ml IV PUSH PRN (01:59)
[2021-10-01 04:27] LABS: Hematocrit 20 % (35-47); Hemoglobin 7.2 g/dL (12.0-16.0); Mean Corpuscular HGB Conc 36 g/dL (31-36); Mean Corpuscular Hemoglobin 38 pg (27-31); Mean Corpuscular Volume 105 fL (80-97); Mean Platelet Volume 9.6 fL (7.4-10.4); Platelet Count 36 10^3/uL (150-450); Red Blood Count 1.92 10^6 /uL (3.70-4.87); Red Cell Distribution Width 19 % (10-15); White Blood Count 8.3 10^3/uL (3.5-10.8)
[2021-10-01 04:34] LABS: Albumin 2.8 g/dL (3.2-5.2); Albumin/Globulin Ratio 1.6 (1-3); Calcium 7.3 mg/dL (8.6-10.3); Globulin 1.8 g/dL (2-4); Total Protein 4.6 g/dL (6.4-8.9)
[2021-10-01] MEDS: fentaNYL 100 mcg/2 ml 50 MCG/ML VIAL IV SLOW PU PRN ×3 (04:50→12:55)
[2021-10-01 04:51] LABS: INR 3.94 (0.86-1.15)
[2021-10-01 05:03] LABS: Magnesium 2.5 mg/dL (1.9-2.7); Phosphorus 2.1 mg/dL (2.5-5.0); Potassium 3.3 mmol/L (3.5-5.0)
[2021-10-01 06:12] LABS: PCO2 Arterial 35 mmHg (35-45); PO2 Arterial 107 mmHg (80-100)
[2021-10-01] MEDS: Pantoprazole VIAL 40 MG VIAL IV SCH (08:02)
[2021-10-01] MEDS: Multivitamins/Minerals TAB PO SCH (08:02)
[2021-10-01] MEDS: Lactulose 30 ml UDC PO SCH ×4 (08:02→20:49)
[2021-10-01] MEDS ORDERED: Potassium Chloride LIQUID 20 MEQ/15 ML LIQUID PO ONE (08:57)
[2021-10-01] MEDS ORDERED: Potassium Phosphate IV 15 MMOLE in NS 0.9% 250 ml 250 ML IVPB ONE (10:00)
[2021-10-01] MEDS ORDERED: Zosyn per Pharmacy NOTE FOLLOW UP SCH (12:00)
[2021-10-01] MEDS ORDERED: Piperacillin/Tazobac ADVAN 3.375 GM in NS 0.9% 100 ml BAG 100 ML IV ONE (12:00)
[2021-10-01] MEDS: ZOSYN 3.375 GM Q8H per EXTENDED INFUSION IV SCH (16:33)
[2021-10-02] MEDS ORDERED: NS 0.9% 100 ml BAG 100 ML ONE (00:17)
[2021-10-02] MEDS: fentaNYL 100 mcg/2 ml 50 MCG/ML VIAL IV SLOW PU PRN (00:18)
[2021-10-02] MEDS: Chlorhexidine MOUTHWASH 0.12% 15 ML UDC TOPICAL SCH ×6 (00:19→21:01)
[2021-10-02] MEDS: ZOSYN 3.375 GM Q8H per EXTENDED INFUSION IV SCH ×3 (00:19→16:05)
[2021-10-02] MEDS: Artificial Tear OPHTH.OINT 3.5 GM BOTH EYES SCH ×6 (00:20→22:10)
[2021-10-02 05:36] LABS: Hematocrit 23 % (35-47); Hemoglobin 7.9 g/dL (12.0-16.0); Mean Corpuscular HGB Conc 34 g/dL (31-36); Mean Corpuscular Hemoglobin 37 pg (27-31); Mean Corpuscular Volume 107 fL (80-97); Mean Platelet Volume 8.8 fL (7.4-10.4); Platelet Count 48 10^3/uL (150-450); Red Blood Count 2.14 10^6 /uL (3.70-4.87); Red Cell Distribution Width 19 % (10-15); White Blood Count 10.9 10^3/uL (3.5-10.8)
[2021-10-02 05:42] LABS: INR 3.92 (0.86-1.15)
[2021-10-02 05:46] LABS: Albumin 2.6 g/dL (3.2-5.2); Albumin/Globulin Ratio 1.4 (1-3); Calcium 7.5 mg/dL (8.6-10.3); Globulin 1.8 g/dL (2-4); Phosphorus 2.5 mg/dL (2.5-5.0); Potassium 3.6 mmol/L (3.5-5.0); Total Bilirubin 11.4 mg/dL (0.2-1.0); Total Protein 4.4 g/dL (6.4-8.9); eGFR CKD-EPI 101.2 (>60)
[2021-10-02 05:49] LABS: Magnesium 2.1 mg/dL (1.9-2.7)
[2021-10-02] MEDS: Lactulose 30 ml UDC PO SCH ×3 (07:32→21:01)
[2021-10-02] MEDS: Pantoprazole VIAL 40 MG VIAL IV SCH (07:32)
[2021-10-02] MEDS: Multivitamins/Minerals TAB PO SCH (07:33)
[2021-10-02] MEDS ORDERED: Potassium Chloride LIQUID 20 MEQ/15 ML LIQUID PO ONE (08:45)
[2021-10-02] MEDS ORDERED: fentaNYL 100 mcg/2 ml 50 MCG/ML VIAL ONE (12:53)
[2021-10-02] MEDS ORDERED: fentaNYL 100 mcg/2 ml 50 MCG/ML VIAL IV ONE (12:55)
[2021-10-03] MEDS: ZOSYN 3.375 GM Q8H per EXTENDED INFUSION IV SCH ×4 (01:00→23:46)
[2021-10-03] MEDS: Chlorhexidine MOUTHWASH 0.12% 15 ML UDC TOPICAL SCH ×7 (01:00→23:46)
[2021-10-03] MEDS: Artificial Tear OPHTH.OINT 3.5 GM BOTH EYES SCH ×6 (02:21→20:49)
[2021-10-03 05:10] LABS: Hematocrit 24 % (35-47); Hemoglobin 7.9 g/dL (12.0-16.0); Mean Corpuscular HGB Conc 33 g/dL (31-36); Mean Corpuscular Hemoglobin 36 pg (27-31); Mean Corpuscular Volume 108 fL (80-97); Mean Platelet Volume 9.1 fL (7.4-10.4); Platelet Count 73 10^3/uL (150-450); Red Blood Count 2.19 10^6 /uL (3.70-4.87); Red Cell Distribution Width 19 % (10-15); White Blood Count 12.8 10^3/uL (3.5-10.8)
[2021-10-03 05:18] LABS: INR 3.73 (0.86-1.15)
[2021-10-03 05:26] LABS: Albumin 2.4 g/dL (3.2-5.2); Albumin/Globulin Ratio 1.2 (1-3); Calcium 7.8 mg/dL (8.6-10.3); Phosphorus 2.7 mg/dL (2.5-5.0); Potassium 3.6 mmol/L (3.5-5.0); Total Bilirubin 11.5 mg/dL (0.2-1.0); Total Protein 4.4 g/dL (6.4-8.9); eGFR CKD-EPI 110.8 (>60)
[2021-10-03 05:28] LABS: Magnesium 1.9 mg/dL (1.9-2.7)
[2021-10-03] MEDS: Pantoprazole VIAL 40 MG VIAL IV SCH (07:47)
[2021-10-03] MEDS: Lactulose 30 ml UDC PO SCH ×3 (07:47→20:48)
[2021-10-03] MEDS: Multivitamins/Minerals TAB PO SCH (07:48)
[2021-10-03] MEDS ORDERED: Furosemide 40 mg/4 ml IV VIAL IV SLOW PU ONE (12:14)
[2021-10-03] MEDS ORDERED: Potassium Chlor 20 meq TAB.ER PO ONE (12:30)
[2021-10-03] MEDS ORDERED: Potassium Chloride LIQUID 20 MEQ/15 ML LIQUID PO ONE (13:34)
[2021-10-03] MEDS: Thiamine 100 MG/ML 2 ml VIAL 500 MG in NS 0.9% 250 ml 250 ML IV SCH ×2 (16:09→22:52)
[2021-10-03 17:22] LABS: Phosphorus 3.4 mg/dL (2.5-5.0); Potassium 3.6 mmol/L (3.5-5.0); eGFR CKD-EPI 95.1 (>60)
[2021-10-03 17:36] LABS: Magnesium 1.6 mg/dL (1.9-2.7)
[2021-10-03] MEDS ORDERED: Magnesium Sulf 4 GM/100 ML IV 4,000 MG/100 ML BAG IVPB ONE (17:53)
[2021-10-03] MEDS: KCL 20 MEQ/100 ML IVPREMIX 20 MEQ/100 ML BAG IV SCH ×2 (18:22→20:49)
[2021-10-03] MEDS ORDERED: NS 0.9% 250 ml 250 ML ONE (22:49)
[2021-10-03] MEDS: fentaNYL 100 mcg/2 ml 50 MCG/ML VIAL IV SLOW PU PRN (22:52)
[2021-10-03] MEDS ORDERED: NS 0.9% 100 ml BAG 100 ML ONE (23:45)
[2021-10-03] MEDS ORDERED: Dexmedetomidine 1,000 MCG in NS 0.9% 250 ml 240 ML IV SCH (23:45)
[2021-10-04] MEDS: Artificial Tear OPHTH.OINT 3.5 GM BOTH EYES SCH ×6 (02:01→21:59)
[2021-10-04] MEDS: Chlorhexidine MOUTHWASH 0.12% 15 ML UDC TOPICAL SCH ×5 (02:01→21:59)
[2021-10-04 05:15] LABS: Hematocrit 22 % (35-47); Hemoglobin 7.5 g/dL (12.0-16.0); Mean Corpuscular HGB Conc 34 g/dL (31-36); Mean Corpuscular Hemoglobin 36 pg (27-31); Mean Corpuscular Volume 107 fL (80-97); Mean Platelet Volume 9.2 fL (7.4-10.4); Platelet Count 58 10^3/uL (150-450); Red Blood Count 2.06 10^6 /uL (3.70-4.87); Red Cell Distribution Width 19 % (10-15); White Blood Count 8.9 10^3/uL (3.5-10.8)
[2021-10-04 05:24] LABS: INR 3.36 (0.86-1.15)
[2021-10-04 05:33] LABS: Calcium 7.9 mg/dL (8.6-10.3); Phosphorus 3.7 mg/dL (2.5-5.0); Potassium 3.8 mmol/L (3.5-5.0); eGFR CKD-EPI 101.2 (>60)
[2021-10-04] MEDS: Thiamine 100 MG/ML 2 ml VIAL 500 MG in NS 0.9% 250 ml 250 ML IV SCH ×2 (06:18→15:25)
[2021-10-04] MEDS: Albumin Human 5% 12.5 GM/250 ML BTL IV SCH ×2 (06:23→06:43)
[2021-10-04] MEDS ORDERED: Furosemide 20 mg/2 ml IV VIAL IV SLOW PU ONE ×2 (07:16→08:14)
[2021-10-04] MEDS ORDERED: Potassium Chloride LIQUID 20 MEQ/15 ML LIQUID PO ONE (08:02)
[2021-10-04] MEDS: Pantoprazole VIAL 40 MG VIAL IV SCH (08:37)
[2021-10-04] MEDS: Lactulose 30 ml UDC PO SCH ×3 (08:37→21:59)
[2021-10-04] MEDS: Multivitamins/Minerals TAB PO SCH (08:38)
[2021-10-04 09:17] LABS: ABS Basophils 0.1 10^3/ul (0-0.2); ABS Eosinophils 0.1 10^3/ul (0-0.6); ABS Lymphocytes 1.6 10^3/ul (1.0-4.8); ABS Monocytes 1.2 10^3/ul (0-0.8); ABS Neutrophils 5.9 10^3/ul (1.5-7.7); Eosinophil % 0.9 %; Lymphocyte % 17.6 %; Nucleated Red Blood Cells % 0.1
[2021-10-04] MEDS: ZOSYN 3.375 GM Q8H per EXTENDED INFUSION IV SCH (09:55)
[2021-10-04] MEDS: fentaNYL 100 mcg/2 ml 50 MCG/ML VIAL IV SLOW PU PRN ×4 (10:47→23:53)
[2021-10-04] MEDS ORDERED: fentaNYL 100 mcg/2 ml 50 MCG/ML VIAL IV SLOW PU ONE (19:49)
[2021-10-05] MEDS: Chlorhexidine MOUTHWASH 0.12% 15 ML UDC TOPICAL SCH ×3 (00:39→08:14)
[2021-10-05] MEDS: Thiamine 100 MG/ML 2 ml VIAL 500 MG in NS 0.9% 250 ml 250 ML IV SCH ×3 (00:39→14:42)
[2021-10-05] MEDS: Artificial Tear OPHTH.OINT 3.5 GM BOTH EYES SCH ×6 (00:59→21:41)
[2021-10-05 01:28] LABS: ABS Basophils 0.1 10^3/ul (0-0.2); ABS Eosinophils 0.1 10^3/ul (0-0.6); ABS Lymphocytes 1.3 10^3/ul (1.0-4.8); ABS Monocytes 1.7 10^3/ul (0-0.8); Eosinophil % 0.7 %; Hematocrit 21 % (35-47); Lymphocyte % 12.6 %; Mean Corpuscular HGB Conc 34 g/dL (31-36); Mean Corpuscular Hemoglobin 37 pg (27-31); Mean Corpuscular Volume 107 fL (80-97); Mean Platelet Volume 8.6 fL (7.4-10.4); Platelet Count 61 10^3/uL (150-450); Red Blood Count 1.92 10^6 /uL (3.70-4.87); Red Cell Distribution Width 19 % (10-15); White Blood Count 10.1 10^3/uL (3.5-10.8)
[2021-10-05] MEDS: fentaNYL 100 mcg/2 ml 50 MCG/ML VIAL IV SLOW PU PRN ×2 (02:17→04:20)
[2021-10-05 04:58] LABS: ABS Basophils 0.1 10^3/ul (0-0.2); ABS Eosinophils 0.1 10^3/ul (0-0.6); ABS Lymphocytes 1.6 10^3/ul (1.0-4.8); ABS Neutrophils 7.2 10^3/ul (1.5-7.7); Eosinophil % 0.9 %; Hematocrit 22 % (35-47); Hemoglobin 7.3 g/dL (12.0-16.0); Lymphocyte % 14.7 %; Mean Corpuscular HGB Conc 34 g/dL (31-36); Mean Corpuscular Hemoglobin 36 pg (27-31); Mean Corpuscular Volume 107 fL (80-97); Mean Platelet Volume 8.5 fL (7.4-10.4); Nucleated Red Blood Cells % 0.2; Platelet Count 67 10^3/uL (150-450); Red Blood Count 2.02 10^6 /uL (3.70-4.87); Red Cell Distribution Width 19 % (10-15)
[2021-10-05 04:59] LABS: INR 3.05 (0.86-1.15)
[2021-10-05 05:10] LABS: Albumin 2.8 g/dL (3.2-5.2); Albumin/Globulin Ratio 1.2 (1-3); Calcium 8.5 mg/dL (8.6-10.3); Globulin 2.4 g/dL (2-4); Phosphorus 3.5 mg/dL (2.5-5.0); Potassium 3.6 mmol/L (3.5-5.0); Total Protein 5.2 g/dL (6.4-8.9); eGFR CKD-EPI 89.6 (>60)
[2021-10-05 05:11] LABS: Magnesium 1.5 mg/dL (1.9-2.7); Total Bilirubin 12.1 mg/dL (0.2-1.0)
[2021-10-05] MEDS ORDERED: fentaNYL 100 mcg/2 ml 50 MCG/ML VIAL IV ONE (05:30)
[2021-10-05] MEDS: Multivitamins/Minerals TAB PO SCH (08:14)
[2021-10-05] MEDS: Lactulose 30 ml UDC PO SCH (08:14)
[2021-10-05] MEDS: Pantoprazole VIAL 40 MG VIAL IV SCH (08:15)
[2021-10-05] MEDS: KCL 20 MEQ/100 ML IVPREMIX 20 MEQ/100 ML BAG IV SCH ×2 (09:42→11:14)
[2021-10-05] MEDS ORDERED: Magnesium Sulf 4 GM/100 ML IV 4,000 MG/100 ML BAG IVPB ONE (10:00)
[2021-10-05] MEDS ORDERED: Lorazepam PYXIS KEY PRN ×3 (11:09→13:20)
[2021-10-05] MEDS ORDERED: Atropine 1% (ORAL/SL) 15 ML BTL SL PRN (11:10)
[2021-10-05] MEDS ORDERED: LORazepam 2 mg VIAL 1 ml IV PUSH ONE (12:37)
[2021-10-05] MEDS: LORazepam 2 mg VIAL 1 ml IV PUSH SCH ×12 (12:49→23:32)
[2021-10-05 12:50] VITALS: BP 158/86
[2021-10-05] MEDS ORDERED: Morphine PCA ADULT 5 MG/ML 30 ML PCA SCH (17:00)
[2021-10-06] MEDS ORDERED: Thiamine 100 MG/ML 2 ml VIAL 250 MG in NS 0.9% 100 ml BAG 100 ML IV SCH (15:00)
== END 2021-10-06 00:13 | disposition expired | DRG 229 ==
LOC: ED 15:09 → SUATTDRO 09-26 00:25 → MED 09-26 00:25 → ICU 09-29 07:31
PROVIDERS: ADMIT Hospitalist; ATTEND Internal Medicine
PROC: O.GIEGD (2021-09-26 14:10)